=== PATIENT | female | born 1985 | race Hispanic/Latino ===

== ENCOUNTER → 2023-05-13 | Emergency (ER) | payer SELFPAY ==
[~2023-05-13] MED LIST: ALPRAZOLAM 0.5 MG TABLET ONE
--- NOTE | 2023-05-13 08:58 | RAD REPORT ---
EXAM DESCRIPTION: CT - Head Brain Wo Cont - 05/13/2023 8:49 am CLINICAL HISTORY: Headache COMPARISON: none TECHNIQUE: Computed axial tomography of the head was obtained. IV contrast was not requested. All CT scans are performed using dose optimization technique as appropriate and may include automated exposure control or mA/KV adjustment according to patient size. FINDINGS: An intracranial bleed is not seen The ventricles are normal in caliber No significant hypodense areas within the brain visualized No extra-axial fluid collection is noted. Small amount of fluid left maxillary sinus IMPRESSION: No acute intracranial abnormality is seen Small amount of fluid left maxillary sinus may indicate acute sinusitis If patient's symptoms persist MRI of the brain would be recommended
--- NOTE | 2023-05-13 09:16 | EDPHYS ---
Physician Documentation [facility] Name: Ama Ramirez Age: 38 yrs Sex: Female : 1985 Arrival Date: 05/13/2023 Time: 07:58 Bed 5 Private MD: ED Physician Deon Nugent HPI: 05/13 08:24 This 38 yrs old Female presents to ER via Unassigned with complaints of Neck sp3 and Upper Back Pain, Hand and foot tingling. 08:24 38-year-old female with known known past medical history presents with 1 week history sp3 of off-and-on numbness and tingling of her upper and lower extremities all started after an emotional upset. Patient does not currently have the symptoms. She denies any motor weakness, speech changes, memory changes, inability to take p.o., bowel or bladder changes, chest pain, shortness of breath, abdominal pain, nausea, vomiting, diarrhea, or any other signs or symptoms on ROS this time.. Historical: - Allergies: 08:26 No Known Allergies; ss - Home Meds: 08:26 None [Active]; ss - PMHx: 08:26 None; ss - PSHx: 08:26 None; ss - Immunization history:: Adult Immunizations up to date. - Social history:: Smoking status: Patient denies any tobacco usage or history of. ROS: 08:26 Constitutional: Negative for fever, chills, and weight loss, Eyes: Negative for injury, sp3 pain, redness, and discharge, ENT: Negative for injury, pain, and discharge, Neck: Negative for injury, pain, and swelling, Cardiovascular: Negative for chest pain, palpitations, and edema, Respiratory: Negative for shortness of breath, cough, wheezing, and pleuritic chest pain, Abdomen/GI: Negative for abdominal pain, nausea, vomiting, diarrhea, and constipation, Back: Negative for injury and pain, MS/Extremity: Negative for injury and deformity, Skin: Negative for injury, rash, and discoloration, Allergy/Immunology: Negative for hives, rash, and allergies, Endocrine: Negative for neck swelling, polydipsia, polyuria, polyphagia, and marked weight changes, Hematologic/Lymphatic: Negative for swollen nodes, abnormal bleeding, and unusual bruising, 08:26 All other systems are negative, Exam: 08:26 Constitutional: This is a well developed, well nourished patient who is awake, alert, sp3 and in no acute distress. Head/Face: Normocephalic, atraumatic. Eyes: Pupils equal round and reactive to light, extra-ocular motions intact. Lids and lashes normal. Conjunctiva and sclera are non-icteric and not injected. Cornea within normal limits. Periorbital areas with no swelling, redness, or edema. ENT: Nares patent. No nasal discharge, no septal abnormalities noted. External auditory canals are clear. Oropharynx with no redness, swelling, or masses, exudates, or evidence of obstruction, uvula midline. Mucous membranes moist. Neck: Trachea midline, no thyromegaly or masses palpated, and no cervical lymphadenopathy. Supple, full range of motion without nuchal rigidity, or vertebral point tenderness. No Meningismus. Chest/axilla: Normal chest wall appearance and motion. Nontender with no deformity. No lesions are appreciated. Cardiovascular: Regular rate and rhythm with a normal S1 and S2. No gallops, murmurs, or rubs. Normal PMI, no JVD. No pulse deficits. Respiratory: Lungs have equal breath sounds bilaterally, clear to auscultation and percussion. No rales, rhonchi or wheezes noted. No increased work of breathing, no retractions or nasal flaring. Abdomen/GI: Soft, non-tender, with normal bowel sounds. No distension or tympany. No guarding or rebound. No evidence of tenderness throughout. Back: No spinal tenderness. No costovertebral tenderness. Full range of motion. Skin: Warm, dry with normal turgor. Normal color with no rashes, no lesions, and no evidence of cellulitis. MS/ Extremity: Pulses equal, no cyanosis. Neurovascular intact. Full, normal range of motion. Neuro: Awake and alert, GCS 15, oriented to person, place, time, and situation. Cranial nerves II-XII grossly intact. Motor strength 5/5 in all extremities. Sensory grossly intact. Cerebellar exam normal. Normal gait. Psych: Awake, alert, with orientation to person, place and time. Behavior, mood, and affect are within normal limits. Vital Signs: 08:22 BP 124 / 78; Pulse 64; Resp 16; Temp 99.1(TE); Pulse Ox 99% ; Weight 47.63 kg; Height 4 ss ft. 10 in. ; Pain 0/10; 08:22 Body Mass Index 21.94 (47.63 kg, 147.32 cm) ss 08:22 Pain Scale: Adult ss MDM: 08:05 Patient medically screened. sp3 08:26 Data reviewed: vital signs, nurses notes, radiologic studies. ED course: 38-year-old sp3 female with now resolved off no neurological symptoms of paresthesias of the upper and lower extremities. This all also started after emotional upset. Differential diagnosis includes anxiety, paresthesias, disc disease, or other psychological process. Given the fact that she had headache associated with this, we will obtain CT scan of the head. If negative we will safely discharged home with neurological follow-up for any further workup as indicated. She will also get Xanax 0.5 mg p.o. once here in the ED for symptomatic control of continued mild anxiety. Vital signs are normal and patient has a completely normal neurological exam including pain and temperature, proprioception, sensory, cranial nerves II through XII, speech, gait, mental status.. 09:15 ED course: CT scan of the head is negative and patient continues have a normal sp3 neurological exam. Will continue with previously outlined plan with follow-up to neurology.. 05/13 08:20 Order name: Test, Urine; Complete Time: 09:23 sp3 05/13 08:20 Order name: CT Head Brain wo Cont: YANES and Paresthesias; Complete Time: 09:15 sp3 Administered Medications: 08:41 Drug: ALPRAZolam PO Tablet 0.5 mg PO once Route: PO; hb Disposition Summary: 05/13/23 09:16 Discharge Ordered Notes: Location: Home sp3 Condition: Stable sp3 Diagnosis - Anxiety, paresthesias sp3 Followup: sp3 - With: Private Physician - When: Upon discharge from the Emergency Department - Reason: Continuance of care Followup: sp3 - With: Donald Strickland MD - When: Upon discharge from the Emergency Department - Reason: Recheck today's complaints Discharge Instructions: - Discharge Summary Sheet sp3 - Paresthesia sp3 Forms: - Medication Reconciliation Form sp3 - Thank You Letter sp3 - Antibiotic Education sp3 - Prescription Opioid Use sp3 - Patient Portal Instructions sp3 - Leadership Thank You Letter sp3 Signatures: Virginia Willams RN RN Michelle Nguyễn RN RN hb Patel, Setul, MD MD sp3
--- NOTE | 2023-05-13 09:16 | ER ---
Nurse's Notes [facility] Name: Ama Ramirez Age: 38 yrs Sex: Female : 1985 Arrival Date: 05/13/2023 Time: 07:58 Bed 5 Private MD: Diagnosis: Anxiety, paresthesias Presentation: 05/13 08:22 Chief complaint: Patient states: Pt reports that she had an emotional episode of ss "anger" 1 week ago and since then has off and on "ugly" feeling in her arms and legs and at time feels a warm sensation to her neck that radiates down her arms. Denies weakness. NIHSS 0 during triage. Coronavirus screen: Client denies travel out of the [place] in the last 14 days. Ebola Screen: Patient denies exposure to infectious person. Patient denies travel to an Ebola-affected area in the 21 days before illness onset. Acute neurological deficit: none identified. Initial Sepsis Screen: Does the patient meet any 2 criteria? No. Patient's initial sepsis screen is negative. Does the patient have a suspected source of infection? No. Patient's initial sepsis screen is negative. Risk Assessment: Do you want to hurt yourself or someone else? Patient reports no desire to harm self or others. Onset of symptoms was May 06, 2023. 08:22 Method Of Arrival: Ambulatory ss 08:22 Acuity: JAMIN 4 ss Historical: - Allergies: 08:26 No Known Allergies; ss - Home Meds: 08:26 None [Active]; ss - PMHx: 08:26 None; ss - PSHx: 08:26 None; ss - Immunization history:: Adult Immunizations up to date. - Social history:: Smoking status: Patient denies any tobacco usage or history of. Screenin:26 [facility] ED Fall Risk Assessment (Adult) History of falling in the last 3 months, ss including since admission No falls in past 3 months (0 pts). Abuse screen: Denies threats or abuse. Denies injuries from another. Nutritional screening: No deficits noted. Tuberculosis screening: Never had TB. Assessment: 08:26 General: Appears in no apparent distress. comfortable, Behavior is calm, cooperative. ss General: Denies fever, feeling ill. Pain: Denies pain. Neuro: Level of Consciousness is awake, alert, obeys commands, Oriented to person, place, time, situation, Dental Professional are equal bilaterally Moves all extremities. Full function Gait is steady, Speech is normal, Facial symmetry appears normal, Pupils are PERRLA, paresthesias in right arm, left arm, right leg and left leg comes and goes during emotional episodes. Denies pain. states, "feels ugly.". Respiratory: Airway is patent Respiratory effort is even, unlabored, Respiratory pattern is regular, symmetrical. GI: Patient currently denies diarrhea, nausea, vomiting. : No signs and/or symptoms were reported regarding the genitourinary system. Derm: Skin is intact, is healthy with good turgor, Skin is pink, warm \\T\\ dry. normal. Vital Signs: 08:22 BP 124 / 78; Pulse 64; Resp 16; Temp 99.1(TE); Pulse Ox 99% ; Weight 47.63 kg; Height 4 ss ft. 10 in. ; Pain 0/10; 08:22 Body Mass Index 21.94 (47.63 kg, 147.32 cm) 08:22 Pain Scale: Adult ss ED Course: 08:02 Patient arrived in ED. im 08:04 Deon Nugent MD is Attending Physician. sp3 08:26 Triage completed. ss 08:26 Arm band placed on right wrist. ss 08:26 Patient has correct armband on for positive identification. 08:41 Provided Education on: medication, tests, result times . 08:51 CT Head Brain wo Cont: YANES and Paresthesias In Process Unspecified. EDMS 09:15 Donald Strickland MD is Referral Physician. sp3 Administered Medications: 08:41 Drug: ALPRAZolam PO Tablet 0.5 mg PO once Route: PO; Medication: 08:26 VIS not applicable for this client. Outcome: 09:16 Discharge ordered by . sp3 09:42 Patient left the ED. Signatures: Dispatcher [employer] EDME Virginia Disla RN RN Michelle Ruffin RN RN Deon Nugent MD MD sp3 Prabha Hill im
[2023-05-13 09:18] LABS: Specific Gravity 1.011 (1.005-1.030)
[2023-05-13 09:58] VITALS: BP 124/78; TEMP 99.1; O2SAT 99
== END ==
LOC: ER 07:58
DX: R20.2 Paresthesia of skin (principal); F41.9 Anxiety disorder, unspecified
CPT/HCPCS: 70450; 81025